=== PATIENT | female | born 1965 | race Caucasian/White ===

== ENCOUNTER → 2016-07-08 | Outpatient (CLI) | payer OTHER ==
--- NOTE | 2016-07-08 15:55 | MA ---
Screening Digital Mammogram with Digital Breast Tomosynthesis Clinical Indications: Routine screening. Mother with history breast cancer in her late 60s. Technique: Standard cephalocaudal projections are obtained. Digital breast tomosynthesis was perform ed in the MLO projection with reconstruction at 1.0 mm slice thickness and composite MLO views recons tructed. This examination is processed by the CAD computer aided detection system. Comparison: June 10, 2015; May 12, 2014; studies dating back to August 28, 2008. Breast density: C; The breasts are heterogeneously dense, which may obscure small masses. Findings: CAD was reviewed. There are no new masses, new clusters of microcalcifications, or significant axillary lymphadenopathy . Impression: Negative mammogram. BI-RADS 1. Recommendation: Routine screening mammogram is recommended in one year. Dense mammographic pattern limits the sensitivity of mammography in this patient. If there is a clini alejandra palpable abnormality, recommend additional imaging with ultrasound if clinically indicated. [facility] will send a result letter to the patient. Negative mammography should not preclude additional workup of a clinically suspicious finding. The patient's information is entered into a reminder system with a target due date for her next mammo gram.
== END ==
LOC: FIMAGING 09:51
DX: Z12.31 Encounter for screening mammogram for malignant neoplasm of breast (principal); Z80.3 Family history of malignant neoplasm of breast
CPT/HCPCS: G0202

== ENCOUNTER → 2016-11-04 | Outpatient (CLI) | payer OTHER | LOC: FIMAGING 14:29 | PROVIDERS: ATTEND Obstetrics & Gynecology | DX: D25.2 Subserosal leiomyoma of uterus (principal); N92.0 Excessive and frequent menstruation with regular cycle; Z97.5 Presence of (intrauterine) contraceptive device ==

== ENCOUNTER → 2017-02-24 | Outpatient (CLI) | payer OTHER | LOC: FIMAGING 11:56 | PROVIDERS: ATTEND Internal Medicine | DX: E04.1 Nontoxic single thyroid nodule (principal) ==

== ENCOUNTER → 2017-07-27 | Outpatient (CLI) | payer OTHER | LOC: FIMAGING 12:11 | PROVIDERS: ATTEND Obstetrics & Gynecology | DX: Z12.31 Encounter for screening mammogram for malignant neoplasm of breast (principal); Z80.3 Family history of malignant neoplasm of breast ==

== ENCOUNTER → 2018-03-16 | Outpatient (CLI) | payer OTHER | LOC: FIMAGING 10:14 | PROVIDERS: ATTEND Obstetrics & Gynecology | DX: N92.1 Excessive and frequent menstruation with irregular cycle (principal); D25.1 Intramural leiomyoma of uterus; D25.2 Subserosal leiomyoma of uterus ==

== ENCOUNTER → 2018-06-28 | Outpatient (CLI) | payer OTHER | LOC: FIMAGING 10:01 | PROVIDERS: ATTEND Obstetrics & Gynecology | DX: D25.1 Intramural leiomyoma of uterus (principal); N83.201 Unspecified ovarian cyst, right side ==

== ENCOUNTER 2018-07-07 21:12 | Emergency (ER) | payer OTHER ==
[2018-07-07 22:00] LABS: PLATELET COUNT 187 10^3/uL (150-400)
--- NOTE | 2018-07-07 22:42 | EDPHY ---
H & P Stated Complaint: ?SMALL CELL EPISODE, LOW SUGAR, THROAT FEELS FUNNY Time Seen by Provider: 07/07/18 21:32 HPI/ROS: Chief complaint: Abdominal discomfort History of present illness: This is a 53-year-old female who presents to the emergency department for abdominal discomfort. She reports she has had increased gas over the last few weeks. Today the pain was in the upper aspect of the abdomen. She was concerned and checked her blood sugar as she has a history of gestational diabetes, she is not currently , her blood sugar was low at 59, she ate some food and then had a spoonful of maple syrup and rechecked her blood sugar and was concerned as it had climbed all the way to 155. She states when she 1st checked her blood sugar and it was low that she felt weak and tingly all over her body. However, on my evaluation she is only complaining of the abdominal discomfort, the other symptoms have resolved. She believes this is secondary to a history of SIBO and her mast cell activation. She is working with multiple doctors to control these issues. She is following a specific diet at this time that is low in sugars. Further, she ate very little food today. There is no report of fevers, no nausea, vomiting, no diarrhea or constipation, no report of blood in the stools, no abnormal urinary symptoms. Review of systems: A 10 point review of systems was obtained and other than described above was negative. - Personal History LMP (Females 10-55): Irregular Current Tetanus/Diphtheria Vaccine: Unsure - Medical/Surgical History Hx Asthma: No Hx Chronic Respiratory Disease: No Hx Diabetes: No Hx Cardiac Disease: No Hx Renal Disease: No Hx Cirrhosis: No Hx Alcoholism: No Hx HIV/AIDS: No Hx Splenectomy or Spleen Trauma: No Other PMH: Gestational diabetes, SMALL INSTEST BACTERIAL OVERGROWTH, MASS CELL ACTIVATION SYNDROME, HASHIMOTOS, ?POTS - Social History Smoking Status: Former smoker - Physical Exam Exam: General Appearance: Alert, no distress. Eyes: Pupils equal and round no pallor or injection. ENT, Mouth: Mucous membranes moist. Respiratory: There are no retractions, lungs are clear to auscultation. Cardiovascular: Regular rate and rhythm. Gastrointestinal: Abdomen is soft and non tender, no masses, bowel sounds normal. Neurological: Alert and oriented x4. Strength and sensation intact and symmetrical. Skin: Warm and dry, no rashes. Musculoskeletal: Neck is supple non tender. Extremities are symmetrical, full range of motion. Psychiatric: Patient is oriented X 3, there is no agitation. Constitutional: Initial Vital Signs Temperature (C) 36.3 C 07/07/18 21:25 Heart Rate 89 07/07/18 21:25 Respiratory Rate 18 07/07/18 21:25 Blood Pressure 113/85 H 07/07/18 21:25 O2 Sat (%) 97 07/07/18 21:25 O2 Delivery Mode Room Air Allergies/Adverse Reactions: sucralfate [From Carafate] Allergy (Verified 07/07/18 21:24) Home Medications: Medication Instructions Recorded Circumin 07/07/18 D3 + K2 Dots 1,000 Units Tab 07/07/18 Miller 07/07/18 Methyl B Complex 07/07/18 Naturethroid 07/07/18 Maurepas-3 07/07/18 Selenium 07/07/18 Vitamin C 07/07/18 Medical Decision Making ED Course/Re-evaluation: Patient was discussed with my secondary supervising physician Dr. Bucky Green. Patient presented to the emergency department for abdominal discomfort. She it was nontoxic. Vital signs were stable. She had a benign abdominal exam. Serial abdominal exams were performed and prior to discharge she was asymptomatic with a benign abdominal exam. I discussed with her that her blood studies were unremarkable. It is possible that a lot of her symptoms were due to low blood sugar. I discussed symptomatic care at home and insuring she is eating proper meals. We did discussed pursuing imaging studies, I believe they will be low yield, she does not want to pursue any at this time. Again home care was discussed. She is to follow up with her primary care doctor this week. Return precautions were given. The patient voiced understanding and agreement with plan. Differential Diagnosis: Included but not limited to gastritis, gastroenteritis, biliary tract disease, pancreatitis, colitis, urinary tract disease - Data Points Laboratory Results: Laboratory Results 07/07/18 21:50 07/07/18 21:50 07/07/18 07/07/18 07/07/18 21:50 21:50 21:30 WBC 3.87 10^3/uL 10^3/uL (3.80-9.50) RBC 4.96 10^6/uL 10^6/uL (4.18-5.33) Hgb 14.4 g/dL g/dL (12.6-16.3) Hct 43.5 % % (38.0-47.0) MCV 87.7 fL fL (81.5-99.8) MCH 29.0 pg pg (27.9-34.1) MCHC 33.1 g/dL g/dL (32.4-36.7) RDW 13.2 % % (11.5-15.2) Plt Count 187 10^3/uL 10^3/uL (150-400) MPV 11.9 fL H fL (8.7-11.7) Neut % (Auto) 56.1 % % (39.3-74.2) Lymph % (Auto) 32.0 % % (15.0-45.0) Wilkes % (Auto) 8.3 % % (4.5-13.0) Eos % (Auto) 2.3 % % (0.6-7.6) Baso % (Auto) 1.0 % % (0.3-1.7) Nucleat RBC Rel Count 0.0 % % (0.0-0.2) Absolute Neuts (auto) 2.17 10^3/uL 10^3/uL (1.70-6.50) Absolute Lymphs (auto) 1.24 10^3/uL 10^3/uL (1.00-3.00) Absolute Monos (auto) 0.32 10^3/uL 10^3/uL (0.30-0.80) Absolute Eos (auto) 0.09 10^3/uL 10^3/uL (0.03-0.40) Absolute Basos (auto) 0.04 10^3/uL 10^3/uL (0.02-0.10) Absolute Nucleated RBC 0.00 10^3/uL 10^3/uL (0-0.01) Immature Gran % 0.3 % % (0.0-1.1) Immature Gran # 0.01 10^3/uL 10^3/uL (0.00-0.10) Sodium 138 mEq/L mEq/L (135-145) Potassium 3.5 mEq/L mEq/L (3.5-5.2) Chloride 103 mEq/L mEq/L (97-110) Carbon Dioxide 25 mEq/l mEq/l (22-31) Anion Gap 10 mEq/L mEq/L (6-14) BUN 13 mg/dL mg/dL (7-23) Creatinine 0.7 mg/dL mg/dL (0.6-1.0) Estimated GFR > 60 Glucose 177 mg/dL H mg/dL (70-100) Calcium 9.4 mg/dL mg/dL (8.5-10.4) Total Bilirubin 0.7 mg/dL mg/dL (0.1-1.4) Conjugated Bilirubin 0.2 mg/dL mg/dL (0.0-0.5) Unconjugated Bilirubin 0.5 mg/dL mg/dL (0.0-1.1) AST 25 IU/L IU/L (14-46) ALT 32 IU/L IU/L (9-52) Alkaline Phosphatase 106 IU/L IU/L (38-126) Total Protein 7.8 g/dL g/dL (6.3-8.2) Albumin 4.6 g/dL g/dL (3.5-5.0) Lipase 147 IU/L IU/L (23-300) Urine Color PALE YELLOW Urine Appearance CLEAR Urine pH 6.0 (5.0-7.5) Ur Specific [place] 1.001 L (1.002-1.030) Urine Protein NEGATIVE (NEGATIVE) Urine Ketones NEGATIVE (NEGATIVE) Urine Blood NEGATIVE (NEGATIVE) Urine Nitrate NEGATIVE (NEGATIVE) Urine Bilirubin NEGATIVE (NEGATIVE) Urine Urobilinogen NEGATIVE EU EU (0.2-1.0) Ur Leukocyte Esterase NEGATIVE (NEGATIVE) Urine Glucose NEGATIVE (NEGATIVE) Departure - Departure Disposition: Home, Routine, Self-Care Clinical Impression: Abdominal pain Qualifiers: Abdominal location: upper abdomen, unspecified Qualified Code(s): R10.10 - Upper abdominal pain, unspecified Condition: Good Instructions: Acute Abdominal Pain (ED) Additional Instructions: Follow-up with your primary care doctor on Monday for recheck If symptoms worsen or new symptoms develop return to the emergency department for recheck Referrals: NONE *PRIMARY CARE P,. [Primary Care Provider] - As per Instructions Lisbet Ceballos MD [[facility] [place] Primary Care Provider] - As per Instructions
[2018-07-07 23:03] VITALS: BP 107/64
== END 2018-07-07 23:02 | disposition home or self-care (01) ==
DX: R10.10 Upper abdominal pain, unspecified (principal)

== ENCOUNTER → 2018-07-17 | Outpatient (CLI) | payer OTHER | LOC: BMCIMAGING 13:13 | PROVIDERS: ATTEND Allergy & Immunology Allergy | DX: R07.9 Chest pain, unspecified (principal) ==

== ENCOUNTER → 2018-07-30 | Outpatient (CLI) | payer OTHER | LOC: FIMAGING 09:10 | PROVIDERS: ATTEND Allergy & Immunology Allergy | DX: Z12.31 Encounter for screening mammogram for malignant neoplasm of breast (principal); Z13.820 Encounter for screening for osteoporosis; Z78.0 Asymptomatic menopausal state; Z82.62 Family history of osteoporosis; Z80.3 Family history of malignant neoplasm of breast ==